=== PATIENT | female | born 1955 | race Caucasian/White ===

== ENCOUNTER → 2016-09-14 | Outpatient (CLI) | payer BC | LOC: FIMAGING 07:44 | DX: Z12.31 Encounter for screening mammogram for malignant neoplasm of breast (principal); Z80.3 Family history of malignant neoplasm of breast | CPT/HCPCS: G0202 ==

== ENCOUNTER → 2016-11-11 | Outpatient (CLI) | payer BC | LOC: BMCIMAGING 11:39 | PROVIDERS: ATTEND Emergency Medicine | DX: R07.81 Pleurodynia (principal) | CPT/HCPCS: 71101-PO ==

== ENCOUNTER → 2017-11-07 | Outpatient (CLI) | payer BC | LOC: FIMAGING 10:33 | PROVIDERS: ATTEND Family Medicine | DX: R93.8 Abnormal findings on diagnostic imaging of other specified body structures (principal); N85.8 Other specified noninflammatory disorders of uterus; D25.9 Leiomyoma of uterus, unspecified; M85.411 Solitary bone cyst, right shoulder ==

== ENCOUNTER → 2018-02-18 | Outpatient (CLI) | payer BC ==
[~2018-02-18] MED LIST: LIDOCAINE 1% 300 MG/30 ML SDV ONE
[2018-02-18 09:09] LABS: INR 1.07 (0.83-1.16); PROTIME(PATIENT) 14.1 SEC (12.0-15.0)
== END ==
LOC: FIMAGING 08:29
PROVIDERS: ATTEND Psychiatry & Neurology Neurology
PROC: 009U3ZZ Drainage of Spinal Canal, Percutaneous Approach (ICD-10-PCS; principal; 2018-02-18)
DX: R27.0 Ataxia, unspecified (principal)
CPT/HCPCS: 82784-90; 83916-90

== ENCOUNTER → 2018-03-26 | Outpatient (CLI) | payer BC | LOC: BMCIMAGING 14:02 | PROVIDERS: ATTEND Family Medicine | DX: S52.591A Other fractures of lower end of right radius, initial encounter for closed fracture (principal); M18.11 Unilateral primary osteoarthritis of first carpometacarpal joint, right hand ==

== ENCOUNTER → 2018-04-10 | Outpatient (CLI) | payer BC | LOC: BMCIMAGING 10:32 | PROVIDERS: ATTEND Orthopaedic Surgery Hand Surgery | DX: S52.514A Nondisplaced fracture of right radial styloid process, initial encounter for closed fracture (principal); X58.XXXA Exposure to other specified factors, initial encounter ==

== ENCOUNTER → 2018-05-08 | Outpatient (CLI) | payer BC | LOC: BMCIMAGING 10:18 | PROVIDERS: ATTEND Orthopaedic Surgery Hand Surgery | DX: S52.514D Nondisplaced fracture of right radial styloid process, subsequent encounter for closed fracture with routine healing (principal); M19.041 Primary osteoarthritis, right hand ==